=== PATIENT | female | born 1990 | race Caucasian/White ===

== ENCOUNTER 2016-11-24 16:18 | Emergency (ER) | payer OTHER | END 2016-11-24 17:03 | disposition home or self-care (01) | LOC: ER 16:18 | DX: T63.301A Toxic effect of unspecified spider venom, accidental (unintentional), initial encounter (principal); R11.0 Nausea; K21.9 Gastro-esophageal reflux disease without esophagitis; F17.210 Nicotine dependence, cigarettes, uncomplicated ==

== ENCOUNTER 2017-02-18 12:20 | Emergency (ER) | payer OTHER | END 2017-02-18 13:56 | disposition left against medical advice (07) | LOC: ER 12:20 | DX: Z53.21 Procedure and treatment not carried out due to patient leaving prior to being seen by health care provider (principal) ==

== ENCOUNTER 2017-06-01 09:35 | Emergency (ER) | payer OTHER | END 2017-06-01 10:45 | disposition home or self-care (01) | LOC: ER 09:35 | DX: S61.215A Laceration without foreign body of left ring finger without damage to nail, initial encounter (principal); F17.210 Nicotine dependence, cigarettes, uncomplicated; Z79.899 Other long term (current) drug therapy; W27.8XXA Contact with other nonpowered hand tool, initial encounter; Y92.69 Other specified industrial and construction area as the place of occurrence of the external cause; Y99.0 Civilian activity done for income or pay ==